=== PATIENT | female | born 1990 | race Caucasian/White ===

== ENCOUNTER 2022-01-19 09:06 | Emergency (ER) | payer OTHER ==
[~2022-01-19 09:06] MED LIST: KEFLEX CAP 500500 MG PO; PRENATAL VITAM1 EAC8 PO; PYRIDIUM200 MG PO; ZOFRAN ODT 4 MG4 MG PO
[2022-01-19 10:02] LABS: HEMOGLOBIN 12.3 gm/dl (12.3-15.3); WHITE BLOOD COUNT 6.9 K/UL (4.5-11.0)
[2022-01-19 10:28] LABS: BUN/CREATININE RATIO 18 (0-10)
== END 2022-01-19 14:28 | disposition home or self-care (01) ==
LOC: ER1 09:06
PROVIDERS: Nurse Practitioner
DX: M54.9 Dorsalgia, unspecified (principal); I10 Essential (primary) hypertension
CPT/HCPCS: 0240U; 80053; 81001; 82550; 82553; 84484; 84703; 85025; 87086; 93005; 96374; 99284; J1885; Q9967